=== PATIENT | male | born 1965 | race Caucasian/White ===

== ENCOUNTER 2016-12-29 20:00 | Inpatient (IN) | payer OTHER ==
--- NOTE | ~2016-12-29 | DS ---
Unit #: [id number] #: [id number] [facility] [id number] [facility] [address] [place] [address] [id number] MR#: [id number] NAME: ZARINA SOW ROOM: P214 Age: 51 Sex: M Admission Date: 12/29/2016 : 1965 Discharge Date: 01/05/2017 Attending Physician: Jimy Negron M.D. Primary Care Physician: Primary Care Physician No DISCHARGE SUMMARY IDENTIFYING DATA Mr. Sow is a 51-year-old, single, white male who is a resident of [place], [place], and is known to us from previous encounter, and was transferred to us from [facility]. DISCHARGE DIAGNOSES Psychiatric: Alcohol dependence, moderate and acute withdrawals; alcohol-induced mood disorder. Medical: None. Stressors: Moderate psychosocial stressors. HISTORY OF PRESENT ILLNESS Please see initial psychiatric evaluation for details. PAST PSYCHIATRIC HISTORY Please see initial psychiatric evaluation for details. PAST MEDICAL HISTORY Please see initial psychiatric evaluation for details. HOSPITAL COURSE The patient was admitted to the adult chemical dependency unit at [facility] cinthia Llamas and was oriented to the hospital environment. Routine p.r.n. medications were initiated, and he was started back on his home medications and alcohol detox protocol was initiated as well. He was taking medications regularly and was tolerating them fairly well, and was able to come out of the detox without any complications and was willing to continue treatment on an outpatient basis and as such, it was decided that he will be discharged home and will continue treatment on an outpatient basis. DISCHARGE MEDICATIONS Remeron 15 mg at bedtime for depression. DISCHARGE CONDITION Stable. PROGNOSIS Fair. Dictated by... Jimy Negron M.D. Unit #: [id number] #: [id number] Patient: ZARINA SOW IAA/modl TD: 01/05/2017 22:35 JOB #: [id number] DISCHARGE SUMMARY Page 1 of 1 X Jimy Negron MD X DISCHARGE SUMMARY
--- NOTE | ~2016-12-29 | PA ---
Unit #: [id number] #: [id number] Patient: ZARINA SOW [id number] [facility] [address] [place] [address] [id number] MR#: [id number] NAME: ZARINA SOW ROOM: P214 Age: 51 Sex: M Admission Date: 12/29/2016 : 1965 Date of Assessment: 12/30/2016 Attending Physician: Jimy Negron M.D. Admitting Physician: Jimy Negron M.D. Primary Care Physician: Primary Care Physician No PSYCHIATRIC ASSESSMENT DATE OF SERVICE 12/30/2016. IDENTIFYING DATA Mr. Sow is a 51-year-old single white male, who is a resident of [place], [place], and is known to us from previous encounter, and was transferred to us from [facility]. CHIEF COMPLAINT "I'm an alcoholic." HISTORY OF PRESENT ILLNESS Mr. Sow is a 51-year-old white male, who presented to [facility] Emergency Room with a blood alcohol level of 0.202 and reported having suicidal ideations and drinking half a gallon of vodka daily for the last 6 months since of his mother and sisters within 2 weeks of each other. He reports that he has been trying to drink himself to and does report increasing depression, anxiety, irritability, restlessness, inability to function and having feelings of hopelessness and helplessness, and suicidal ideation, intent, and plan and as such, recommendation for inpatient level of care was made and the patient was transferred to us. SUBSTANCE ABUSE HISTORY The patient reports long history of alcohol dependence, reports that he has been drinking since he was 22 years old and currently has been drinking half a gallon of vodka a day. PAST PSYCHIATRIC HISTORY The patient has had history of psychiatric and chemical dependency treatment in the past, though currently he is not active in treatment program. Review of the medical records indicate that he is not seeing a psychiatrist, and is not taking any psychotropic medications. PAST MEDICAL HISTORY No acute or chronic medical illnesses. ALLERGIES Penicillin. PERSONAL AND SOCIAL HISTORY A 51-year-old white male, who reports that he is single, unemployed, and lives alone and has poor social support system. Unit #: [id number] #: [id number] Patient: ZARINA SOW MENTAL STATUS EXAMINATION Middle-aged white male who was casually dressed with fair personal hygiene, appears to be in no acute distress or discomfort. He was awake and alert on interaction with intact orientation to time, place, and person. His mood was anxious and depressed with a congruent affect. His speech was slow and restricted in content. He reports having suicidal ideations, but denies any homicidal ideations, and also denies any auditory or visual hallucinations. His insight and judgment remain significantly impaired. DIAGNOSTIC IMPRESSION Psychiatric: Alcohol dependence, moderate and acute withdrawals; alcohol-induced mood disorder. Medical: None. Stressors: Moderate psychosocial stressors. TREATMENT PLAN 1. The patient has presented with history of mood disorder, and has been decompensating and will need inpatient hospitalization for safety and stabilization. We will start him back on his home medications and detox protocol will be initiated as well. 2. Supportive therapy was provided to the patient. 3. Safe, structured, and nourishing environment will be provided. ESTIMATED LENGTH OF STAY 5 to 7 days. ABILITY TO HELP SELF Limited. WILLINGNESS TO HELP SELF The patient appears to be willing to help self. STRENGTHS 1. Communicative. 2. Cooperative. PROBLEMS 1. Chronic dysphoric symptoms. 2. Poor social support system. DISCHARGE CRITERIA This will be contingent upon the patient's ability to go through detox without having any significant withdrawal symptoms as well as his ability to stay safe to himself, particularly after discharge from the hospital. Dictated by... Jennifer Bradley/kevin TD: 12/30/2016 07:16 JOB #: [id number] Unit #: [id number] #: [id number] Patient: ZARINA SOW PSYCHIATRIC ASSESSMENT Page 1 of 1 X Jimy Negron MD X PSYCHIATRIC ASSESSMENT
--- NOTE | ~2016-12-29 | PN ---
Unit #: [id number] #: [id number] Patient: ZARINA FELDMAN [id number] [facility] [address] [place] [address] [id number] MR#: [id number] NAME: ZARINA FELDMAN ROOM: P214 Age: 51 Sex: M Admission Date: 12/29/2016 : 1965 Attending Physician: Jimy Negron M.D. Admitting Physician: Jennifer Bradley NOTES DATE OF SERVICE: 12/31/2016 IDENTIFYING DATA Mr. Feldman is a 51-year-old white male, who is seen today and chart was reviewed and the case was discussed with the staff. He has been anxious, withdrawn, and rather seclusive to himself. MENTAL STATUS EXAMINATION Young-white male, who was casually dressed with fair personal hygiene, appears to be in no acute distress or discomfort. He was awake and alert on interaction with intact orientation. His mood was anxious with a congruent affect. His speech was slow and restricted in content. He reports having suicidal ideations, but denies any homicidal ideations, We will continue to follow up. Dictated by... Jennifer Bradley/kevin TD: 01/01/2017 11:08 JOB #: [id number] [facility] ISSA NOTES Page 1 of 1 X Jimy Negron MD X PROGRESS NOTE
--- NOTE | ~2016-12-29 | PN ---
Unit #: [id number] #: [id number] Patient: ZARINA FELDMAN [id number] [facility] [address] [place] [address] [id number] I MR#: [id number] NAME: ZARINA FELDMAN ROOM: P214 Age: 51 Sex: M Admission Date: 12/29/2016 : 1965 Attending Physician: Jimy Negron M.D. Admitting Physician: Jimy Negron M.D. Primary Care Physician: Primary Care Physician Jen ISSA NOTES DATE OF SERVICE 01/02/2017 SUBJECTIVE Mr. Feldman is a 51-year-old white male with alcohol dependence and mood disorder, who was seen today and chart was reviewed, and case was discussed with the staff. He has been anxious, withdrawn, and seclusive to himself . MENTAL STATUS EXAMINATION Middle-aged white male, who was casually dressed with fair personal hygiene, appears to be in no acute distress or discomfort. He was awake and alert with impaired attention and concentration. His mood was anxious with a congruent affect. He denies any suicidal or homicidal ideations. His insight and judgment remain slightly impaired. TREATMENT PLAN 1. We will continue him on his current medications and treatment protocol. We will monitor his response and make further adjustments as needed. 2. We will continue to follow up. Dictated by... Jennifer Bradley/kevin TD: 01/03/2017 15:28 JOB #: [id number] [facility] PROGRESS NOTES Page 1 of 1 X Jimy Negron MD PROGRESS NOTE
--- NOTE | ~2016-12-29 | PN ---
Unit #: [id number] #: [id number] Patient: ZARINA FELDMAN [id number] [facility] [address] [place] [address] [id number] I MR#: [id number] NAME: ZARINA FELDMAN ROOM: P214 Age: 51 Sex: M Admission Date: 12/29/2016 : 1965 Attending Physician: Jimy Negron M.D. Admitting Physician: Jimy Negron M.D. Primary Care Physician: Primary Care Physician Jen HOLLAND PROGRESS NOTES DATE 01/04/2017 DISCUSSION Mr. Feldman is a 51-year-old, white male with substance abuse and mood disorder who was seen today and chart was reviewed and case was discussed with the staff. He has been anxious, withdrawn though appears to be coming out of the detox without any complications. He has been taking medications and tolerating them fairly well with no reported side effects. MENTAL STATUS EXAM Middle-aged white male who was casually dressed with fair personal hygiene, appears to be in no acute distress or discomfort. He was awake and alert with intact orientation. His mood was anxious with congruent affect. He denies any suicidal or homicidal ideation. His insight and judgement remains slightly impaired. TREATMENT PLAN 1. We will continue him on his current treatment protocol. We will monitor his response and make further adjustments as needed. 2. We will continue to follow up. Dictated by... Jennifer Bradley/neil TD: 01/05/2017 22:01 JOB #: [id number] Unit #: [id number] #: [id number] Patient: ZARINA FELDMAN PROGRESS NOTES Page 1 of 1 X Jimy Negron MD PROGRESS NOTE
--- NOTE | ~2016-12-29 | PN ---
Unit #: [id number] #: [id number] Patient: ZARINA FELDMAN [id number] [facility] [address] [place] [address] [id number] I MR#: [id number] NAME: ZARINA FELDMAN ROOM: P214 Age: 51 Sex: M Admission Date: 12/29/2016 : 1965 Attending Physician: Jimy Negron M.D. Admitting Physician: Jimy Negron M.D. Primary Care Physician: Primary Care Physician Jen HOLLAND PROGRESS NOTES DATE 01/03/2017 DISCUSSION Mr. Fledman is a 51-year-old, white male who was seen today and chart was reviewed and case was discussed with the staff. He has been anxious, withdrawn and rather seclusive to himself. Meanwhile, he has been cooperative with treatment recommendations. We will be taking medications and tolerating them fairly well with no reported side effects. MENTAL STATUS EXAM Middle-aged white male who was casually dressed with fair personal hygiene, appears to be in no acute distress or discomfort. He was awake and alert with intact orientation. His mood was anxious with congruent affect. He denies any suicidal or homicidal ideation. His insight and judgement remains slightly impaired. TREATMENT PLAN 1. We will continue him on his current treatment protocol. We will monitor his response and make further adjustments as needed. 2. We will continue to follow up. Dictated by... Jennifer Bradley/neil TD: 01/04/2017 17:05 JOB #: [id number] Unit #: [id number] #: [id number] Patient: ZARINA FELDMAN PROGRESS NOTES Page 1 of 1 X Jimy Negron MD PROGRESS NOTE
--- NOTE | ~2016-12-29 | HP ---
Unit #: [id number] #: [id number] Patient: TY SOW [id number] [facility] [place] [address] [id number] I MR#: [id number] NAME: TY SOW ROOM: P214 Age: 51 Sex: M Admission Date: 12/29/2016 : 1965 Attending Physician: Jimy Negron M.D. Admitting Physician: Jmiy Negron M.D. Primary Care Physician: Primary Care Physician No HISTORY AND PHYSICAL HISTORY OF PRESENT ILLNESS Ty is a 51 year old admitted to [address] [place] [address] because of his continued abuse of alcohol. PAST MEDICAL HISTORY 1. Long history of alcohol abuse. 2. History of withdrawal seizures. 3. COPD. 4. Obesity. PAST SURGICAL HISTORY Open abdomen after swallowing razors. ALLERGIES Penicillin. SOCIAL HISTORY Smokes 1 pack per day. Drinks half gallon of liquor on a daily basis. Denies illicit drug use. FAMILY HISTORY Medically noncontributory. REVIEW OF SYSTEMS CONSTITUTIONAL: No fever or chills. HEENT: Denies any sore throat, ear pain or runny nose. CARDIOVASCULAR: Denies chest pain, irregular heart rhythm or palpitations. CHEST: Denies shortness of breath or cough. No hemoptysis. GASTROINTESTINAL: Denies nausea, vomiting, diarrhea or chronic constipation. ENDOCRINE: Denies history of increased thirst or urination. No recent significant weight loss or gain. GENITOURINARY: Denies dysuria, frequency, or hematuria. SKIN: Denies any rashes. HEMATOLOGIC: Denies history of increased bleeding or bruising. MUSCULOSKELETAL: Denies any hot, swollen joints. No generalized muscle pain. NEUROLOGIC: Denies problems with vision or speech. No frequent, severe headaches. No numbness, tingling or weakness in any extremities. Denies loss of bladder or bowel control. CURRENT MEDICATIONS Detox protocol. Unit #: [id number] #: [id number] Patient: TY SOW PHYSICAL EXAMINATION GENERAL: Alert, obese, in no apparent distress. VITAL SIGNS: Blood pressure 154/82, heart rate 100, respirations 16, temperature 98.6. WEIGHT: 250. HEIGHT: 6 feet 0 inches. SKIN: Warm and dry without rash or lesion. HEENT: Normocephalic. TMs not viewed. Oral and nasal passages clear. Conjunctivae clear. PERRLA. EOMs intact. NECK: Supple without lymphadenopathy or thyromegaly. HEART: Regular rate and rhythm without murmur. LUNGS: Clear. ABDOMEN: Soft, nontender. : Not done. EXTREMITIES: No evidence of cyanosis, clubbing or edema. Moves all without focal deficit. NEUROLOGICAL: Grossly within normal limits. Cranial Nerves: II: Visual patiño are intact. III, IV AND : Extraocular movements are intact. Pupils are equal, round and reactive to light. V: Facial sensation is grossly normal. VII: Facial movements and expression are normal. VIII: Auditory acuity grossly intact. IX, X: Uvula is midline. Phonation is normal. XI: Patient shrugs shoulders and turns head normally. XII: Tongue protrudes in the midline. Sensory and Motor Function: Sensory and motor sensation is grossly normal. Motor: moves all extremities well. Coordination: Gait is normal. Deep Tendon Reflexes: Intact. IMPRESSION Psychiatric admission. RECOMMENDATIONS PSYCHIATRIC: Per psychiatrist. MEDICAL: See no contraindications to participate in facility's activities. MEDICAL PROGNOSIS Good. MEDICAL CONDITION Stable. Dictated by... Lucina Barron P.A.-C. for Jennifer Bonilla/fabricio TD: 12/30/2016 18:09 JOB #: [id number] Unit #: [id number] #: [id number] Patient: TY SOW HISTORY AND PHYSICAL Page 1 of 1 X Lucina Barron HISTORY AND PHYSICAL
--- NOTE | ~2016-12-29 | PN ---
Unit #: [id number] #: [id number] Patient: ZARINA FELDMAN [id number] [facility] [address] [place] [address] [id number] I MR#: [id number] NAME: ZARINA FELDMAN ROOM: P214 Age: 51 Sex: M Admission Date: 12/29/2016 : 1965 Attending Physician: Jimy Negron M.D. Admitting Physician: Jimy Negron M.D. Primary Care Physician: Primary Care Physician Jen HOLLAND PROGRESS NOTES SUBJECTIVE Mr. Feldman is a 51-year-old white male (1) he has been anxious and withdrawn, in distress and discomfort, shaking and tremulous, unkempt, disheveled and going through acute detox and reports not feeling good, though he has been taking the medications and tolerating them fairly well. MENTAL STATUS EXAMINATION Middle-aged white male, who was casually dressed with marginal personal hygiene, appears to be in no acute distress or discomfort. He was awake and alert with impaired attention and concentration. His mood was anxious with a congruent affect. His speech was slow and restricted in content. His thought processes were disorganized with some looseness of associations. His insight and judgment remain significantly impaired. TREATMENT PLAN 1. We will continue him on his current medications and treatment protocol. We will monitor his response to the medications and make further adjustments as needed. 2. We will continue to follow up. Dictated by... Jennifer Bradley/kevin TD: 01/01/2017 12:04 JOB #: [id number] [facility] PROGRESS NOTES Page 1 of 1 X Jimy Negron MD PROGRESS NOTE
[2016-12-30 12:36] LABS: BASOPHIL% 0.4 % (0-2.5); EOSINOPHIL# 0.1 X10e3 (0-0.7); EOSINOPHIL% 1.5 % (0.0-7.0); HEMATOCRIT 39.5 % (38.0-50.0); HEMOGLOBIN 13.4 gm/dL (13.0-16.0); LYMPHOCYTE# 1.5 X10e3 (1.0-3.5); LYMPHOCYTE% 25.1 % (17.0-45.0); MEAN CELL VOLUME 86.3 FL (83-96); MEAN CORPUSCULAR HEMOGLOBIN 29.2 PG (28-34); MEAN CORPUSCULAR HGB CONC 33.8 g/dL (30-36); MEAN PLATELET VOLUME 8.3 FL (6.5-11.5); MONOCYTE# 0.6 X10e3 (0-1.0); MONOCYTE% 10.7 % (3.0-12.0); NEUTROPHIL# 3.6 X10e3 (1.5-7.1); NEUTROPHIL% 62.3 % (40-75); PLATELET COUNT 122 X10e3 (140-420); RED BLOOD COUNT 4.58 X10e (3.90-5.60); RED CELL DISTRIBUTION WIDTH 14.3 % (11.0-15.5); WHITE BLOOD COUNT 5.8 X10e3 (4.0-10.5)
[2016-12-30 12:47] LABS: DIFF IND NO
[2016-12-30 12:51] LABS: ALBUMIN SERUM 3.6 g/dL (3.5-5.0); BILIRUBIN,TOTAL 1.4 mg/dL (0.2-2.0); CALCIUM SERUM 8.6 mg/dL (8.4-10.2); CREATININE SERUM 0.6 mg/dL (0.6-1.4); GLOM FILT RATE Estimated 115.6 mL/min (>60); POTASSIUM 3.5 mmol/L (3.5-5.1); PROTEIN TOTAL SERUM 6.6 g/dL (6.0-8.3)
[2016-12-31 12:56] LABS: URINE APPEARANCE CLEAR; URINE BILIRUBIN NEG (NEG); URINE BLOOD NEG (NEG); URINE COLOR DK YELLOW; URINE GLUCOSE NEG (NEG); URINE KETONE NEG (NEG); URINE LEUKOCYTE ESTERASE NEG (NEG); URINE NITRATE NEG (NEG); URINE PH 6.5 (5-8); URINE PROTEIN NEG (NEG)
[2016-12-31 13:50] LABS: AMPHETAMINE NEG (NEG); BARBITURATES NEG (NEG); BENZODIAZEPINES POS (NEG); COCAINE NEG (NEG); MARIJUANA NEG (NEG); OPIATES NEG (NEG); TRICYCLIC ANTIDEPRESSANTS NEG (NEG); U METHADONE NEG (NEG)
== END 2017-01-05 11:08 | disposition home or self-care (01) | DRG 897 ==
LOC: P2S 21:24
PROVIDERS: Psychiatry & Neurology Psychiatry
PROC: HZ2ZZZZ Detoxification Services for Substance Abuse Treatment (ICD-10-PCS; principal; 2016-12-29)
DX: F10.239 Alcohol dependence with withdrawal, unspecified (principal); F10.24 Alcohol dependence with alcohol-induced mood disorder; Z88.0 Allergy status to penicillin
CPT/HCPCS: 80053; 80307; 81003; 85025; 86592

== ENCOUNTER 2017-01-13 12:00 | Inpatient (IN) | payer OTHER ==
--- NOTE | ~2017-01-13 | PA ---
Unit #: [id number] #: [id number] Patient: [facility] SOW [id number] [facility] [address] [place] [address] [id number] MR#: [id number] NAME: ZARINA SOW ROOM: P209 Age: 51 Sex: M Admission Date: 01/13/2017 : 1965 Date of Assessment: Attending Physician: Jimy Negron M.D. Admitting Physician: Jimy Negron M.D. Primary Care Physician: Primary Care Physician No PSYCHIATRIC ASSESSMENT IDENTIFYING DATA Mr. Sow is a 51-year-old, single, white male, who is a resident of [place], [place], and is known to us from previous encounter, who was just discharged from my care about a week ago and self-referred himself back to the hospital on a voluntary basis. CHIEF COMPLAINT "I'm having suicidal thoughts to stab myself and kill myself." HISTORY OF PRESENT ILLNESS Mr. Sow is a 51-year-old white male with a history of alcohol dependence and mood disorder, who was self-referred to the hospital with a blood alcohol level of 0.024. Reports increasing depression and suicidal thoughts with a plan to stab and kill himself and "I went to the [facility] [place] and I told to tell my friend and they drove me here. [facility] and [facility], got drunk and tried to commit suicide. I just lost my mother and sister and still unable to get over the . I've not slept or had anything to eat in the past 2 days. I was born and raised in [place], [place] and I relocated to [place] 3 years ago." He does report increasing depression, anxiety, feelings of hopelessness and helplessness, and suicidal ideation and as such, recommendation for inpatient level of care for safety and stabilization was made and the patient was transferred to us. SUBSTANCE ABUSE HISTORY The patient reports history of alcohol dependence stating that he has been drinking since he was 15 years old and currently has been drinking half a gallon a day. PAST PSYCHIATRIC HISTORY The patient has had a [facility] of [facility] and review of the medical records indicate currently he is not active in any treatment program, is not seeing a psychiatrist, and is not taking any psychotropic medications. PAST MEDICAL HISTORY No acute or chronic medical illnesses. ALLERGIES No known medication allergies. CURRENT MEDICATIONS None. Unit #: [id number] #: [id number] Patient: ZARINA SOW PERSONAL AND SOCIAL HISTORY A 51-year-old white male, who reports he is single, unemployed, homeless and has poor social support system. MENTAL STATUS EXAMINATION Middle-aged white male, who was casually dressed with poor personal hygiene, appears to be in no acute distress or discomfort. He was awake and alert on interaction with intact orientation. His mood was anxious and depressed with a congruent affect. His speech was slow and restricted in content. He reports having suicidal ideations, but denies any homicidal ideations, and also denies any auditory or visual hallucinations. His insight and judgment remain significantly impaired. DIAGNOSTIC IMPRESSION Psychiatric: Major depressive disorder, recurrent, moderate, without psychotic features; alcohol dependence, moderate. Medical: None. Stressors: Moderate psychosocial stressors. TREATMENT PLAN 1. The patient has presented with a history of substance abuse and mood disorder, and has been decompensating and will need inpatient hospitalization for safety and stabilization. We will start him back on his home medications. We will adjust the medications and monitor response. 2. Supportive therapy was provided to the patient. ESTIMATED LENGTH OF STAY 5 to 7 days. ABILITY TO HELP SELF Limited. WILLINGNESS TO HELP SELF The patient appears to be willing to help self. STRENGTHS 1. Communicative. 2. Cooperative. PROBLEMS 1. Chronic dysphoric symptoms. 2. Chronic chemical dependency. 3. Poor social support system. DISCHARGE CRITERIA This will be contingent upon the patient's ability to go through detox without having any significant withdrawal symptoms as well his ability to stay safe to himself, particularly after discharge from the program. Dictated by... Jimy Negron M.D. IAA/nichellel Unit #: [id number] #: [id number] Patient: ZARINA SOW TD: 01/14/2017 07:30 JOB #: [id number] PSYCHIATRIC ASSESSMENT Page 1 of 1 X Jimy Negron MD X PSYCHIATRIC ASSESSMENT
--- NOTE | ~2017-01-13 | HP ---
Unit #: [id number] #: [id number] Patient: TY SOW [id number] [facility] [address] [place] [address] [id number] I MR#: [id number] NAME: TY SOW ROOM: P209 Age: 51 Sex: M Admission Date: 01/13/2017 : 1965 Attending Physician: Jimy Negron M.D. Admitting Physician: Jimy Negron M.D. Primary Care Physician: Primary Care Physician No HISTORY AND PHYSICAL Ty is a 51 year old admitted to [address] [place] [address] because of his continued abuse of alcohol. Patient was seen and H and P dated 12/30/16 was reviewed. This is current. No changes. Please see H and P dated 12/30/16. Dictated by... Lucina Barron P.A.-C. for Jennifer Bonilla/fabricio TD: 01/14/2017 15:02 JOB #: [id number] HISTORY AND PHYSICAL Page 1 of 1 X Lucina Barron HISTORY AND PHYSICAL
--- NOTE | ~2017-01-13 | PN ---
Unit #: [id number] #: [id number] Patient: ZARINA FELDMAN [id number] [facility] [address] [place] [address] [id number] MR#: [id number] NAME: ZARINA FELDMAN ROOM: P209 Age: 51 Sex: M Admission Date: 01/13/2017 : 1965 Attending Physician: Jimy Negron M.D. Admitting Physician: Jimy Negron M.D. Primary Care Physician: Primary Care Physician Jen HOLLAND PROGRESS NOTES DATE January 17, 2017 DISCUSSION Mr. Feldman is a 51-year-old white male, who was seen today and chart was reviewed and the case was discussed with the staff. He has been anxious, withdrawn, and rather seclusive to himself. Meanwhile, he has been cooperative with the treatment recommendations and he has been taking the medications and tolerating them fairly well with no reported side effects. MENTAL STATUS EXAMINATION Middle-aged white male, who was casually dressed with fair personal hygiene and appears to be in no acute distress or discomfort. He was awake and alert with intact orientation. His mood is anxious with a congruent affect. He denies any suicidal or homicidal ideations. His insight and judgment remain slightly impaired. TREATMENT PLAN 1. We will continue him on his current treatment protocol, and will monitor his response, and make further adjustments as needed. 2. We will continue to followup. Dictated by... Jennifer Bradley/jerry TD: 01/18/2017 11:13 JOB #: [id number] Unit #: [id number] #: [id number] Patient: ZARINA FELDMAN PROGRESS NOTES Page 1 of 1 X Jimy Negron MD PROGRESS NOTE
--- NOTE | ~2017-01-13 | DS ---
Unit #: [id number] #: [id number] [facility]: [facility] [id number] [facility] [address] [place] [address] [id number] MR#: [id number] NAME: ZARINA SOW ROOM: P209 Age: 51 Sex: M Admission Date: 01/13/2017 : 1965 Discharge Date: Attending Physician: Jimy Negron M.D. Primary Care Physician: Primary Care Physician No DISCHARGE SUMMARY IDENTIFYING DATA Mr. Sow is a 51-year-old single white male, who is a resident of [place], [place], and is known to us from previous encounter, was just discharged from my care and was self-referred back to the hospital. DISCHARGE DIAGNOSES Psychiatric: Major depressive disorder, recurrent, moderate, without psychotic features; alcohol dependence, moderate. Medical: None. Stressors: Moderate psychosocial stressors. HISTORY OF PRESENT ILLNESS Please see initial psychiatric evaluation for details. PAST PSYCHIATRIC HISTORY Please see initial psychiatric evaluation for details. PAST MEDICAL HISTORY Please see initial psychiatric evaluation for details. HOSPITAL COURSE The patient was admitted to the adult psychiatric unit at [facility] cinthia Llamas and was oriented to the hospital environment. Routine p.r.n. medications were initiated, and he was started back on his home medications and medications were adjusted, Remeron 15 mg at bedtime was initiated and he was closely monitored. He was taking the medications regularly and was tolerating them fairly well and was able to show a decent and therapeutic response and as such, it was decided that he will be discharged home and will continue treatment on an outpatient basis. DISCHARGE MEDICATIONS Remeron 15 mg at bedtime. DISCHARGE CONDITION Stable. PROGNOSIS Fair. Dictated by... Jimy Negron M.D. IAA/nichellel Unit #: [id number] #: [id number] Patient: ZARINA SOW TD: 01/18/2017 07:01 JOB #: [id number] DISCHARGE SUMMARY Page 1 of 1 X Jimy Negron MD X DISCHARGE SUMMARY
--- NOTE | ~2017-01-13 | PN ---
Unit #: [id number] #: [id number] Patient: ZARINA SOW [id number] [facility] [address] [place] [address] [id number] I MR#: [id number] NAME: ZARINA SOW ROOM: P209 Age: 51 Sex: M Admission Date: 01/13/2017 : 1965 Attending Physician: Jimy Negron M.D. Admitting Physician: Jimy Negron M.D. Primary Care Physician: Primary Care Physician Jen HOLLAND PROGRESS NOTES DATE OF SERVICE 01/14/2017 DISCUSSION Mr. Sow is a 51-year-old white male who was seen today. Chart was reviewed and case was discussed with the staff. He remains anxious, withdrawn, depressed, and seclusive to himself and has been expressing feelings of hopelessness and helplessness. Meanwhile, he has been compliant with the treatment recommendations and has been taking the medications and tolerating them fairly well with no reported side effects. MENTAL STATUS EXAMINATION Middle-aged white male who is casually dressed with fair personal hygiene, appears to be in no acute distress or discomfort. He was awake and alert on interaction with intact orientation. His mood is anxious with a congruent affect. He denies any suicidal or homicidal ideations. His insight and judgment remain slightly impaired. TREATMENT PLAN 1. We will continue him on his current treatment protocol, and we will monitor his response and make further adjustments as needed. 2. We will continue to follow up. Dictated by... Jimy Negron M.D. IAA/bzg TD: 01/15/2017 07:21 JOB #: [id number] [facility] PROGRESS NOTES Page 1 of 1 X Jimy Negron MD PROGRESS NOTE
--- NOTE | ~2017-01-13 | PN ---
Unit #: [id number] #: [id number] Patient: ZARINA FELDMAN [id number] [facility] [address] [place] [address] [id number] I MR#: [id number] NAME: ZARINA FELDMAN ROOM: P209 Age: 51 Sex: M Admission Date: 01/13/2017 : 1965 Attending Physician: Jimy Negron M.D. Admitting Physician: Jimy Negron M.D. Primary Care Physician: Primary Care Physician Jen HOLLAND PROGRESS NOTES DATE OF SERVICE 01/15/2017 DISCUSSION Mr. Feldman is a 51-year-old white male who was seen today. Chart was reviewed and case was discussed with the staff. He has been anxious, withdrawn, and rather seclusive to himself. Meanwhile, he has been cooperative with treatment recommendations and has been taking the medications and tolerating them fairly well with no reported side effects. MENTAL STATUS EXAMINATION Middle-aged white male who is casually dressed with marginal personal hygiene, appears to be in distress or discomfort. He was awake and alert with impaired attention and concentration. His mood is anxious and depressed with congruent affect. Speech is slow and restricted in content. He denies any suicidal or homicidal ideations and also denies any auditory or visual hallucinations. His insight and judgment remain slightly impaired. TREATMENT PLAN 1. We will continue him on his current medications and treatment protocol. We will monitor his response to the medications and make further adjustments as needed. 2. We will continue to follow up. Dictated by... Jennifer Bradley/keyonna TD: 01/16/2017 07:13 JOB #: [id number] Unit #: [id number] #: [id number] Patient: ZARINA FELDMAN PROGRESS NOTES Page 1 of 1 X Jimy Negron MD PROGRESS NOTE
[2017-01-14 09:39] LABS: BASOPHIL% 0.7 % (0-2.5); EOSINOPHIL# 0.1 X10e3 (0-0.7); EOSINOPHIL% 1.1 % (0.0-7.0); HEMOGLOBIN 14.9 gm/dL (13.0-16.0); LYMPHOCYTE# 1.7 X10e3 (1.0-3.5); LYMPHOCYTE% 29.8 % (17.0-45.0); MEAN CELL VOLUME 86.9 FL (83-96); MEAN CORPUSCULAR HEMOGLOBIN 29.5 PG (28-34); MEAN CORPUSCULAR HGB CONC 33.9 g/dL (30-36); MEAN PLATELET VOLUME 7.5 FL (6.5-11.5); MONOCYTE# 0.5 X10e3 (0-1.0); NEUTROPHIL# 3.4 X10e3 (1.5-7.1); NEUTROPHIL% 59.4 % (40-75); PLATELET COUNT 271 X10e3 (140-420); RED BLOOD COUNT 5.06 X10e (3.90-5.60); RED CELL DISTRIBUTION WIDTH 14.9 % (11.0-15.5); WHITE BLOOD COUNT 5.8 X10e3 (4.0-10.5)
[2017-01-14 09:50] LABS: DIFF IND NO
[2017-01-14 09:55] LABS: ALBUMIN SERUM 4.1 g/dL (3.5-5.0); BILIRUBIN,TOTAL 1.6 mg/dL (0.2-2.0); BUN/CREATININE RATIO 11.66; CALCIUM SERUM 8.6 mg/dL (8.4-10.2); CREATININE SERUM 0.6 mg/dL (0.6-1.4); GLOM FILT RATE Estimated 115.6 mL/min (>60); POTASSIUM 3.2 mmol/L (3.5-5.1)
[2017-01-14 10:20] LABS: URINE APPEARANCE TURBID; URINE BILIRUBIN NEG (NEG); URINE BLOOD TRACE (NEG); URINE COLOR DK YELLOW; URINE GLUCOSE NEG (NEG); URINE KETONE TRACE (NEG); URINE LEUKOCYTE ESTERASE NEG (NEG); URINE NITRATE NEG (NEG); URINE PH 5.5 (5-8); URINE PROTEIN 3+ (NEG); URINE SPECIFIC GRAVITY 1.031 (1.003-1.035)
[2017-01-14 10:22] LABS: URINE BACTERIA AUWI NEG (NEGATIVE); URINE SQUAMOUS EPITHELIAL CELL NONE SEEN /[HPF]; UWBCS1 AUWI 0-2 (0-5)
[2017-01-14 12:03] LABS: AMPHETAMINE NEG (NEG); BARBITURATES NEG (NEG); BENZODIAZEPINES NEG (NEG); COCAINE NEG (NEG); MARIJUANA NEG (NEG); OPIATES NEG (NEG); TRICYCLIC ANTIDEPRESSANTS NEG (NEG); U METHADONE NEG (NEG); URINE AMORPHOUS SEDIMENT AMORP URATES; URINE GRANULAR CAST 0-2 /[HPF]
== END 2017-01-18 10:20 | disposition home or self-care (01) | DRG 885 ==
LOC: P2S 14:16 → POF 14:16 → P2S 14:45
PROVIDERS: Psychiatry & Neurology Psychiatry
DX: F33.1 Major depressive disorder, recurrent, moderate (principal); J44.9 Chronic obstructive pulmonary disease, unspecified; F10.20 Alcohol dependence, uncomplicated
CPT/HCPCS: 80053; 80307; 81003; 85025

== ENCOUNTER 2017-04-14 21:18 | Inpatient (IN) | payer OTHER ==
[~2017-04-14] VITALS: Ht 182.9 cm; Wt 113.4 kg
--- NOTE | ~2017-04-14 | PN ---
Unit #: [id number] #: [id number] Patient: ZARINA FELDMAN [id number] [facility] [address] [place] [address] [id number] I MR#: [id number] NAME: ZARINA FELDMAN ROOM: P208 Age: 51 Sex: M Admission Date: 04/15/2017 : 1965 Attending Physician: Jimy Negron M.D. Admitting Physician: Jimy Negron M.D. Primary Care Physician: Primary Care Physician Jen HOLLAND PROGRESS NOTES DATE 04/18/2017 DISCUSSION Mr. Feldman is a 51-year-old, white male with alcohol dependence and mood disorder who was seen today and chart was reviewed and case was discussed with the staff. He has been anxious, withdrawn and rather seclusive to himself. Meanwhile, he has been cooperative with treatment recommendations. He has been taking medications and tolerating them fairly well. MENTAL STATUS EXAM Middle-aged white male who was casually dressed with fair personal hygiene, appears to be in no acute distress or discomfort. He was awake and alert with intact orientation. His mood was anxious with congruent affect. His speech was slow and goal directed. He denies any suicidal or homicidal ideation. His insight and judgement remains slightly impaired. TREATMENT PLAN 1. We will continue him on his current treatment protocol. We will monitor his response to the medication and make further adjustments as needed. 2. We will continue to follow up. Dictated by... Jennifer Bradley/neil TD: 04/20/2017 03:13 JOB #: [id number] Unit #: [id number] #: [id number] Patient: ZARINA FELDMANBLANQUITA PROGRESS NOTES Page 1 of 1 X Jimy Negron MD PROGRESS NOTE
--- NOTE | ~2017-04-14 | HP ---
Unit #: [id number] #: [id number] Patient: TY SOW [id number] [place] [address] [id number] I MR#: [id number] NAME: TY SOW ROOM: P208 Age: 51 Sex: M Admission Date: 04/15/2017 : 1965 Attending Physician: Jimy Negron M.D. Admitting Physician: Jimy Negron M.D. Primary Care Physician: Primary Care Physician No HISTORY AND PHYSICAL HISTORY OF PRESENT ILLNESS Ty is a 51 year old admitted to [address] [place] [address] because of his continued abuse of alcohol. PAST MEDICAL HISTORY 1. Long history of alcohol abuse. 2. History of withdrawal seizures. 3. COPD. 4. Obesity. PAST SURGICAL HISTORY Open abdomen after swallowing razors many years ago. ALLERGIES Penicillin. SOCIAL HISTORY Smokes 1 pack per day. Drinks half gallon of liquor on a daily basis. Denies illicit drug use. FAMILY HISTORY Medically noncontributory. REVIEW OF SYSTEMS CONSTITUTIONAL: No fever or chills. HEENT: Denies any sore throat, ear pain or runny nose. He does report bilateral red eyes that have been draining green discharge over the past 72 hours. CARDIOVASCULAR: Denies chest pain, irregular heart rhythm or palpitations. CHEST: Denies shortness of breath or cough. No hemoptysis. GASTROINTESTINAL: Denies nausea, vomiting, diarrhea or chronic constipation. ENDOCRINE: Denies history of increased thirst or urination. No recent significant weight loss or gain. GENITOURINARY: Denies dysuria, frequency, or hematuria. SKIN: Denies any rashes. HEMATOLOGIC: Denies history of increased bleeding or bruising. MUSCULOSKELETAL: Denies any hot, swollen joints. No generalized muscle pain. NEUROLOGIC: Denies problems with vision or speech. No frequent, severe headaches. No numbness, tingling or weakness in any extremities. Denies loss of bladder or bowel control. Unit #: [id number] #: [id number] Patient: TY SOW CURRENT MEDICATIONS 1. Detox protocol. 2. Remeron 15 mg q.h.s. 3. Proventil inhaler p.r.n. PHYSICAL EXAMINATION GENERAL: Alert, obese, in no apparent distress. VITAL SIGNS: Blood pressure 150/78, heart rate 96, respirations 16, temperature 98.6. WEIGHT: 250. HEIGHT: 6 feet 0 inches. SKIN: Warm and dry without rash or lesion. HEENT: Normocephalic. TMs not viewed. Oral and nasal passages clear. Conjunctivae injected bilaterally with small amounts of green discharge. NECK: Supple without lymphadenopathy or thyromegaly. HEART: Regular rate and rhythm without murmur. LUNGS: Clear. ABDOMEN: Soft, nontender. : Not done. EXTREMITIES: No evidence of cyanosis, clubbing or edema. Moves all without focal deficit. NEUROLOGICAL: Grossly within normal limits. Cranial Nerves: II: Visual patiño are intact. III, IV AND : Extraocular movements are intact. Pupils are equal, round and reactive to light. V: Facial sensation is grossly normal. VII: Facial movements and expression are normal. VIII: Auditory acuity grossly intact. IX, X: Uvula is midline. Phonation is normal. XI: Patient shrugs shoulders and turns head normally. XII: Tongue protrudes in the midline. Sensory and Motor Function: Sensory and motor sensation is grossly normal. Motor: moves all extremities well. Coordination: Gait is normal. Deep Tendon Reflexes: Intact. IMPRESSION 1. Psychiatric admission. 2. Alcohol abuse. 3. Bilateral conjunctivitis. RECOMMENDATIONS PSYCHIATRIC: Per psychiatrist. MEDICAL: 1. See no contraindication to participate in facility's activities. 2. Detox per protocol. 3. Start Ciloxan eye drops, 2 drops each eye q. 4 hours x7 days. MEDICAL PROGNOSIS Good. MEDICAL CONDITION Stable. Dictated by... Lucina Barron P.A.-C. for Lucila Carbajal M.D. Unit #: [id number] #: [id number] Patient: TY SOW DHEERAJ/dzh TD: 04/15/2017 20:25 JOB #: [id number] HISTORY AND PHYSICAL Page 1 of 1 X Lucina Barron HISTORY AND PHYSICAL
--- NOTE | ~2017-04-14 | PN ---
Unit #: [id number] #: [id number] Patient: ZARINA FELDMAN [id number] [facility] [address] [place] [address] [id number] I MR#: [id number] NAME: ZARINA FELDMAN ROOM: P208 Age: 51 Sex: M Admission Date: 04/15/2017 : 1965 Attending Physician: Jimy Negron M.D. Admitting Physician: Jimy Negron M.D. Primary Care Physician: Primary Care Physician Jen ISSA NOTES DATE OF SERVICE: 04/17/2017 SUBJECTIVE Mr. Feldman is a 51-year-old white male with alcohol dependence, mood disorder, who was seen today and chart was reviewed, and case was discussed with the staff. He has been anxious, withdrawn, and rather seclusive to himself. Meanwhile, he has been cooperative with treatment recommendation and has been taking medications and tolerating them fairly well with no reported side effects. MENTAL STATUS EXAMINATION Middle-aged white male, who was casually dressed with fair personal hygiene, appears to be in no acute distress or discomfort. He was awake and alert with impaired attention and concentration. His mood was anxious with a congruent affect. His speech was slow and restricted in content. His thought processes were disorganized with looseness of associations. His insight and judgment remain significantly impaired. TREATMENT PLAN 1. We will continue his current medications and treatment protocol. We will monitor his response to medications and make further adjustments as needed. 2. We will continue to follow up. Dictated by... Jennifer Bradley/kevin TD: 04/19/2017 23:38 JOB #: [id number] Unit #: [id number] #: [id number] Patient: ZARINA FELDMAN PROGRESS NOTES Page 1 of 1 X Jimy Negron MD PROGRESS NOTE
--- NOTE | ~2017-04-14 | PN ---
Unit #: [id number] #: [id number] Patient: ZARINA FELDMAN [id number] [facility] [address] [place] [address] [id number] I MR#: [id number] NAME: ZARINA FELDMAN ROOM: P208 Age: 51 Sex: M Admission Date: 04/15/2017 : 1965 Attending Physician: Jimy Negron M.D. Admitting Physician: Jimy Negron M.D. Primary Care Physician: Primary Care Physician Jen HOLLAND PROGRESS NOTES DATE 04/16/2017 DISCUSSION Mr. Feldman is a 51-year-old white male who was seen today and chart was reviewed and case was discussed with the staff. He has been anxious, withdrawn and rather seclusive to himself. Meanwhile, he has been cooperative with treatment recommendations and has been taking medications and tolerating them fairly well with no reported side effects. MENTAL STATUS EXAMINATION Middle-aged white male who was casually dressed with fair personal hygiene and appears to be in no acute distress or discomfort. He was awake and alert with intact orientation. His mood was anxious with congruent affect. His speech is slow and tangential. His thought processes were disorganized with some looseness of associations and flight of ideas. His insight and judgement remains significantly impaired. TREATMENT PLAN 1. Will continue him on his current medications and detox protocol. Will monitor his response to the medications and make further adjustments as needed. 2. Will continue to follow up. Dictated by... Jennifer Bradley/fabricio TD: 04/16/2017 21:27 JOB #: [id number] Unit #: [id number] #: [id number] Patient: ZARINA FELDMANBLANQUITA PROGRESS NOTES Page 1 of 1 X Jimy Negron MD PROGRESS NOTE
--- NOTE | ~2017-04-14 | PA ---
Unit #: [id number] #: [id number] Patient: ZARINA SOW [id number] [facility] [address] [place] [address] [id number] I MR#: [id number] NAME: ZARINA SOW ROOM: P208 Age: 51 Sex: M Admission Date: 04/15/2017 : 1965 Date of Assessment: 04/15/2017 Attending Physician: Jimy Negron M.D. Admitting Physician: Jimy Negron M.D. Primary Care Physician: Primary Care Physician No PSYCHIATRIC ASSESSMENT IDENTIFICATION DATA Mr. Sow is a 51-year-old single white male who is a resident of [place], [place], and is known to us from previous encounter and was self-referred to the hospital. CHIEF COMPLAINT "Suicidal ideation. If I could, I would drink myself to ." HISTORY OF PRESENT ILLNESS Mr. Sow is a 51-year-old white male with dual diagnosis of mood and disorder and alcohol dependence. He is known to me from previous encounter and was brought to the hospital with blood alcohol level of 0.279 with increasing depression and feelings of hopelessness and suicidal ideation and was brought to the hospital by friends of state, that he has been drinking two-fifths of vodka on daily basis and he has not eaten in the last 3 to 4 days, and he has not been sleeping. "When I do I pass out from drinking." He does report increasing depression, anxiety, irritability, restlessness, feelings of hopelessness and helplessness, and suicidal ideations with intent and plan. As such recommendation for inpatient level of care for safety and stabilization was made. The patient was stepped down from the inpatient unit. SUBSTANCE ABUSE HISTORY The patient reports history of alcohol dependence as he stated that he has been drinking since he was 15 years old and currently has been drinking two-fifth of vodka on daily basis. PAST PSYCHIATRIC HISTORY The patient has not had any prior inpatient or outpatient psychiatric treatment. Review of the medical records indicate currently he is not active in any treatment program. He is not seeing a psychiatrist and did not take any psychotropic medications. PAST MEDICAL HISTORY No acute or chronic medical illness. MEDICATION ALLERGIES Penicillin. PERSONAL AND SOCIAL HISTORY A 51-year-old white male who reported that he is single, unemployed, and essentially homeless and has poor social support system. MENTAL STATUS EXAMINATION Unit #: [id number] #: [id number] Patient: ZARINA SOW Middle-aged white male who is casually dressed with fair personal hygiene. Appears to be in no acute distress or discomfort. He was awake and alert on interaction with intact orientation to time, place, and person. His mood is anxious and depressed with a congruent affect. His speech is slow and restricted in content. His thought processes were disorganized with some looseness of associations. He reports having suicidal ideations. His insight and judgment remain significantly impaired. DIAGNOSTIC IMPRESSION PSYCHIATRIC: Major depressive disorder, recurrent, moderate, without psychotic features. Alcohol dependence, moderate, in acute withdrawal. MEDICAL: None. STRESSORS: Moderate psychosocial stressors. TREATMENT PLAN 1. The patient has presented with history of substance abuse and mood disorder and has been decompensating and will need inpatient hospitalization for detoxification and safety and stabilization purposes. We will start him back on his home medications, and we will adjust the medications and monitor response. 2. Supportive therapy was provided to the patient. 3. Safe, structured, and nourishing environment will be provided. ESTIMATED LENGTH OF STAY 5 to 7 days. ABILITY TO HELP SELF Limited. WILLINGNESS TO HELP SELF The patient appears to be willing to help self. STRENGTHS 1. Communicative. 2. Cooperative. PROBLEMS 1. Chronic dysphoric symptoms. 2. Poor social support system. DISCHARGE CRITERIA This will be contingent upon the patient's ability to show resolution of his depression and anxiety as well as his ability to stay safe to himself and others particularly after discharge from the hospital. Dictated by... Jennifer Bradley/keyonna TD: 04/15/2017 09:52 JOB #: [id number] Unit #: [id number] #: [id number] Patient: ZARINA SOW PSYCHIATRIC ASSESSMENT Page 1 of 1 X Jimy Negron MD PSYCHIATRIC ASSESSMENT
--- NOTE | ~2017-04-14 | PN ---
Unit #: [id number] #: [id number] Patient: ZARINA FELDMAN [id number] [facility] [address] [place] [address] [id number] I MR#: [id number] NAME: ZARINA FELDMAN ROOM: P208 Age: 51 Sex: M Admission Date: 04/15/2017 : 1965 Attending Physician: Jimy Negron M.D. Admitting Physician: Jimy Negron M.D. Primary Care Physician: Primary Care Physician Jen ISSA NOTES DATE OF SERVICE 04/19/2017 DISCUSSION Mr. Feldman is a 51-year-old, white male who was seen today and chart was reviewed and case was discussed with the staff. He appears to be doing better and appears to be coming out of the detox without any complications. He has been taking medications and tolerating them fairly well with no reported side effects. MENTAL STATUS EXAM Middle-aged white male who was casually dressed with fair personal hygiene, appears to be in no acute distress or discomfort. He was awake and alert on interaction with intact orientation. His mood was anxious with congruent affect. He denies any suicidal or homicidal ideation. His insight and judgement remains slightly impaired. TREATMENT PLAN 1. We will continue him on his current medications and treatment protocol. We will monitor his response to the medication and make further adjustments as needed. 2. We will continue to follow up. Dictated by... Jennifer Bradley/neil TD: 04/20/2017 21:54 JOB #: [id number] [facility] PROGRESS NOTES Page 1 of 1 X Jimy Negron MD PROGRESS NOTE
--- NOTE | ~2017-04-14 | DS ---
Unit #: [id number] #: [id number] Patient: [facility]EL[facility]AN [id number] [facility] [address] [place] [address] [id number] I MR#: [id number] NAME: ZARINA FELDMAN ROOM: P208 Age: 51 Sex: M Admission Date: 04/15/2017 : 1965 Discharge Date: 04/20/2017 Attending Physician: Jimy Negron M.D. Primary Care Physician: Primary Care Physician No DISCHARGE SUMMARY IDENTIFICATION DATA Mr. Feldman is a 51-year-old white male who is a resident of [place], [place], and is known to us from previous encounter and was self-referred to the hospital. DISCHARGE DIAGNOSES PSYCHIATRIC: Major depressive disorder, recurrent, moderate, without psychotic features. Alcohol dependence, moderate, in acute withdrawals. MEDICAL: None. STRESSORS: Mild psychosocial stressors. HISTORY OF PRESENT ILLNESS Same as in initial psychiatric evaluation. PAST PSYCHIATRIC HISTORY Same as in initial psychiatric evaluation. PAST MEDICAL HISTORY Same as in initial psychiatric evaluation. HOSPITAL COURSE The patient was admitted to the adult chemical dependency unit at [facility] cinthia Llamas and was oriented to the hospital environment. Routine p.r.n. medications were initiated, and he was started on the detox protocol and was closely monitored. He was taking the medications regularly and was tolerating them fairly well and was able to come out of the detox without any complications and was willing to continue treatment on outpatient basis. As such it was decided that he will be kept on his current medications and will be discharged home. We will continue treatment on outpatient basis. DISCHARGE MEDICATIONS Remeron 15 mg at bedtime for depression. CONDITION AT DISCHARGE Stable. PROGNOSIS Fair. Dictated by... Unit #: [id number] #: [id number] Patient: ZARINA FELDMAN Jennifer Bradley/donnieg TD: 04/22/2017 11:49 JOB #: [id number] DISCHARGE SUMMARY Page 1 of 1 X Jimy Negron MD X DISCHARGE SUMMARY
[2017-04-15 09:44] LABS: BASOPHIL% 0.7 % (0-2.5); EOSINOPHIL# 0.2 X10e3 (0-0.7); EOSINOPHIL% 2.5 % (0.0-7.0); HEMATOCRIT 40.8 % (38.0-50.0); HEMOGLOBIN 14.1 gm/dL (13.0-16.0); LYMPHOCYTE# 2.3 X10e3 (1.0-3.5); LYMPHOCYTE% 32.5 % (17.0-45.0); MEAN CELL VOLUME 85.2 FL (83-96); MEAN CORPUSCULAR HEMOGLOBIN 29.5 PG (28-34); MEAN CORPUSCULAR HGB CONC 34.6 g/dL (30-36); MONOCYTE# 0.6 X10e3 (0-1.0); MONOCYTE% 8.4 % (3.0-12.0); NEUTROPHIL# 3.9 X10e3 (1.5-7.1); NEUTROPHIL% 55.9 % (40-75); PLATELET COUNT 161 X10e3 (140-420); RED BLOOD COUNT 4.79 X10e (3.90-5.60); RED CELL DISTRIBUTION WIDTH 13.6 % (11.0-15.5)
[2017-04-15 09:54] LABS: DIFF IND NO
[2017-04-15 10:04] LABS: ALBUMIN SERUM 4.2 g/dL (3.5-5.0); BILIRUBIN,TOTAL 0.6 mg/dL (0.2-2.0); BUN/CREATININE RATIO 12.5; CALCIUM SERUM 9.1 mg/dL (8.4-10.2); CREATININE SERUM 0.8 mg/dL (0.6-1.4); GLOM FILT RATE Estimated 102.7 mL/min (>60); POTASSIUM 3.4 mmol/L (3.5-5.1); PROTEIN TOTAL SERUM 7.2 g/dL (6.0-8.3)
[2017-04-16 09:56] LABS: URINE APPEARANCE CLOUDY; URINE BILIRUBIN NEG (NEG); URINE BLOOD NEG (NEG); URINE COLOR DK YELLOW; URINE GLUCOSE NEG (NEG); URINE KETONE NEG (NEG); URINE LEUKOCYTE ESTERASE NEG (NEG); URINE NITRATE NEG (NEG); URINE PH 7.5 (5-8); URINE PROTEIN NEG (NEG); URINE SPECIFIC GRAVITY 1.015 (1.003-1.035)
[2017-04-16 10:45] LABS: AMPHETAMINE NEG (NEG); BARBITURATES POS (NEG); BENZODIAZEPINES POS (NEG); COCAINE NEG (NEG); MARIJUANA NEG (NEG); OPIATES NEG (NEG); TRICYCLIC ANTIDEPRESSANTS NEG (NEG); U METHADONE NEG (NEG)
== END 2017-04-20 17:30 | disposition home or self-care (01) | DRG 885 ==
LOC: P2S 04-15 02:52 → P1E 04-15 02:52 → P2S 04-15 03:23
PROVIDERS: Psychiatry & Neurology Psychiatry
PROC: HZ2ZZZZ Detoxification Services for Substance Abuse Treatment (ICD-10-PCS; principal; 2017-04-15)
DX: F33.1 Major depressive disorder, recurrent, moderate (principal); R45.851 Suicidal ideations; F10.230 Alcohol dependence with withdrawal, uncomplicated; Z88.0 Allergy status to penicillin; F17.200 Nicotine dependence, unspecified, uncomplicated; J44.9 Chronic obstructive pulmonary disease, unspecified; H10.9 Unspecified conjunctivitis
CPT/HCPCS: 80053; 80307; 81003; 85025; 86592